=== PATIENT | female | born 1975 | race Caucasian/White ===

== ENCOUNTER → 2019-08-09 08:44 | Outpatient (CLI) | payer OTHER, SELFPAY ==
--- NOTE | 2019-08-09 | DI.US.S_ITS ---
PROCEDURE: US EXTREMITY NONVASC UPPER LT INDICATIONS: INFECTIVE MYOSITIS TECHNIQUE: Real-time scanning was performed of the left upper arm, with image documentation. COMPARISON: None. FINDINGS: No lymphadenopathy or fluid collections visualized. IMPRESSION: No sonographic abnormality. Dictated by: Lexa SIN Interpreted: Patrice Landrum MD on 08/09/2019 at 10:05 Approved by: Patrice Landrum M.D. on 08/09/2019 at 14:57
== END ==
PROVIDERS: PCP Nurse Practitioner Family; Visit Provider Nurse Practitioner Family
DX: M60.001 Infective myositis, unspecified left arm (principal)
CPT/HCPCS: 76882

== ENCOUNTER 2019-09-14 11:07 | Emergency (ER) | payer OTHER, SELFPAY ==
[2019-09-14 11:18] VITALS: BP 139/92; PULSE 86; RESP 18; TEMP 36.7; O2SAT 100
--- NOTE | 2019-09-14 11:21 | ED_ITS ---
HPI - Extremity Injury (Upper) General Chief Complaint: Extremity Problem,Nontraumatic Stated Complaint: arm hurts, possible cyst Time Seen by Provider: 09/14/19 11:20 Source: patient Mode of arrival: Ambulatory Limitations: no limitations History of Present Illness HPI narrative: 44-year-old female smoker presents with a chief complaint of ongoing severe left shoulder and arm pain since July. She denies any significant injury and has no fever or chills. She has been seen by her primary at least once or twice and has had an ultrasound which was unremarkable. She has had increasing pain that starts in her shoulder and radiates down her arm, worse with motion and improvement with rest. She states that she feels like her arm may be coming week but it's hard to tell if this week or just hurts. She has no discoloration, erythema, warmth or rash. Related Data Previous Rx's Medication Instructions Recorded albuterol sulfate 3 ml INH SEE INSTRUCTIONS #1 box 03/27/17 albuterol sulfate [Ventolin HFA] 1 puff INH SEE INSTRUCTIONS #8 gm 03/27/17 amoxicillin 875 mg PO BID #20 tab 03/27/17 fluconazole [Diflucan] 150 mg PO SEE INSTRUCTIONS #2 tab 03/27/17 fluticasone propionate [Flonase 0 INTRANASAL SEE INSTRUCTIONS #1 03/27/17 Allergy Relief] bot hydrocodone-chlorpheniramine 5 ml OR BID #115 ml 03/27/17 [Tussionex Pennkinetic ER] ofloxacin 1 drp OPHTH BID #1 bot 03/27/17 prednisone 20 mg PO SEE INSTRUCTIONS #10 tab 03/27/17 ketorolac 10 mg PO Q6H PRN #14 tab 09/14/19 Allergies Allergy/AdvReac Type Severity Reaction Status Date / Time clindamycin [CLINDAMYCIN] AdvReac Unknown GI UPSET Unverified 12/13/17 11:45 INSECT REACTION Allergy Intermediate RASH, Uncoded 12/13/17 11:45 EDEMA, WHEEZING Review of Systems Constitutional Constitutional: Denies chills, Denies fatigue, Denies fever(s), Denies frequent falls, Denies lethargy and Denies weakness Eyes Eyes: Denies change in vision, Denies eye discharge, Denies irritation and Denies loss of vision ENT Ears, Nose, Mouth, and Throat: Denies change in voice, Denies dizziness, Denies neck pain, Denies sore throat and Denies throat swelling Cardiovascular Cardiovascular: Denies chest pain, Denies irregular heart rhythm, Denies lightheadedness, Denies palpitations, Denies dyspnea, Denies dyspnea on exertion and Denies orthopnea Respiratory Respiratory: Denies cough, Denies dyspnea, Denies dyspnea on exertion and Denies wheezing Gastrointestinal Gastrointestinal: Denies abdominal pain, Denies change in bowel habits, Denies diarrhea, Denies nausea and Denies vomiting Genitourinary Genitourinary: Denies hematuria, Denies flank pain, Denies urinary incontinence and Denies urinary urgency Musculoskeletal Musculoskeletal: Denies back pain, Reports limited range of motion, Denies muscle weakness, Denies neck pain, Denies numbness and Denies tingling Integumentary/Breasts Skin/Breast: Denies pruritus, Denies erythema, Denies rash and Denies wounds Neurologic Neurologic: Denies behavioral changes, Denies confusion, Denies dizziness, Denies frequent falls, Denies loss of vision, Denies numbness, Denies tingling and Denies weakness Psychiatric Psychiatric: Denies anxiety, Denies behavioral changes, Denies confusion, Denies depression, Denies homicidal ideation and Denies suicidal ideation Endocrine Endocrine: Denies fatigue, Denies flushing and Denies palpitations Hematologic/Lymphatic Hematologic/Lymphatic: Denies easy bruising Allergic/Immunologic Allergic/Immunologic: Denies urticaria, Denies throat swelling and Denies wheezing Patient History Social History Smoking Status: Current every day smoker Smoking Status: Current every day smoker Exam Narrative Exam Narrative: GENERAL: [44] year old patient appears stated age. Well- nourished, well-developed patient, in mild distress. Crying, obviously uncomfortable HEAD: Atraumatic. Normocephalic. EYES: Pupils equal round and reactive. Extraocular motions intact. No scleral icterus. No injection or drainage. ENT: Nose without bleeding, purulent drainage. Throat without erythema, tonsillar hypertrophy or exudate. Airway patent. NECK: Trachea midline. Non tender CARDIOVASCULAR: Regular rate and rhythm without murmurs, gallops, or rubs. RESPIRATORY: Clear to auscultation. Breath sounds equal bilaterally. No wheezes, rales, or rhonchi. GASTROINTESTINAL: Abdomen soft, non-tender, nondistended. EXTREMITIES: Patient has decreased range of motion of left upper extremity at the shoulder due to pain. There is no erythema warmth or swelling noted. Cap refill is intact, sensation intact, pulses intact. Patient states the pain seems to start in her axilla and when I palpate there is no induration, swelling or abnormal finding but it does seem to elicit pain. BACK: Nontender without deformity or crepitance. No flank tenderness. NEURO: AOx3. SKIN: No rash or erythema of visible areas Initial Vital Signs Initial Vital Signs: Vital Signs Temperature 98.1 F 09/14/19 11:18 Pulse Rate 86 09/14/19 11:18 Respiratory Rate 18 09/14/19 11:18 Blood Pressure 139/92 H 09/14/19 11:18 Pulse Oximetry 100 09/14/19 11:18 Procedures Orthopedic Splinting/Casting Injury #1: Side: left Upper Extremity Injury Location: shoulder Upper Extremity Immobilizer: sling/shoulder immobilizer Post splinting neuro exam: intact Post splinting vascular exam: intact Placed by: Nursing Course Orders Ordered: ED Orders 09/14/19 12:30 Basic Metabolic Panel Stat C-Reactive Protein Quant Stat Complete Blood Count AUTO DIFF Stat Erythrocyte Sedimentation Rate Stat 09/14/19 13:12 CT angio UE LT Stat Vital Signs Vital signs: Vital Signs - 8 hr 09/14/19 11:18 09/14/19 14:21 Temperature 98.1 F Pulse Rate 86 76 Respiratory Rate 18 16 Blood Pressure 139/92 H 139/92 H Pulse Oximetry 100 97 MDM - Extremity Injury (Upper) Lab Data Result diagrams: 09/14/19 12:30 09/14/19 12:30 Labs: Lab Results 09/14/19 09/14/19 Range/Units 12:30 12:30 WBC 5.5 (4.5-11.0) X10^3/uL RBC 4.12 (4.0-5.2) X10^6/uL Hgb 13.1 (12.0-16.0) g/dL Hct 38.3 (36-46) % MCV 93.0 (80-100) fL MCH 31.9 (26-34) PG MCHC 34.3 (30-36) % RDW 14.2 (11.6-14.8) % Plt Count 279 (150-400) X10^3/uL Neut % (Auto) 35.3 L (50-75) % Lymph % (Auto) 51.4 H (25-40) % Day % (Auto) 8.2 (3-14) % Eos % (Auto) 4.3 H (2-4) % Baso % (Auto) 0.8 (0-2) % Neut # (Auto) 2000 (1135-6107) /uL Lymph # (Auto) 2800 (4077-4601) /uL Day # (Auto) 500 (0-900) /uL Eos # (Auto) 200 (0-450) /uL Baso # (Auto) 0 (0-100) /uL ESR 11 (0-20) MM/HR Sodium 143 (137-145) mmol/L Potassium 3.8 (3.4-5.1) mmol/L Chloride 105 (98-107) mmol/L Carbon Dioxide 33 H (22-32) mmol/L BUN 11 (7-17) mg/dL Creatinine 0.80 (0.52-1.04) mg/dL Estimated GFR > 60.0 (>60) mL/min BUN/Creatinine Ratio 13.8 (6-22) Glucose 100 (70-100) mg/dL Calcium 8.6 (8.4-10.2) mg/dL C-Reactive Protein 0.7 (<1.0) mg/dL Imaging Data CTA LUE: Radiologist's Impression: [place] [address] CT Scan Report Signed Patient: Christine Ghosh [employer]#: [id number] : 1975Acct:[id number] Age/Sex: 44 / FDate of Service: 09/14/19 Loc: ED Accession Number: [id number] Procedure: CT angio UE LT Ordering Provider: Danis Hakcett D.O. PROCEDURE: CT ANGIO UE LT INDICATIONS: severe pain shoulder to fingers, numb, weak TECHNIQUE: After the administration of intravenous contrast, 2.5 mm sections acquired from the aortic arch through the symptomatic arm, with optional delayed image acquisition from the elbows to the fingers. 3-dimensional maximum intensity projection (MIP) coronal and sagital reformats, and/or 3-dimensional volume rendering reformatting was then performed. For radiation dose reduction, the following was used: automated exposure control. COMPARISON: None. FINDINGS: Image quality: Diagnostic. Arteries: The heart is normal in size. There is no pericardial effusion. Anterior and superior vena cava are grossly unremarkable, but not well evaluated. The main pulmonary arterial trunk is within normal limits. The ascending and descending thoracic aorta is within normal limits without significant atherosclerotic change is evident. There is no aneurysm, dissection, or high-grade narrowing. Mild atherosclerosis of the abdominal aorta is present without evidence of aneurysm. There is mild atherosclerotic changes noted involving the bilateral internal iliac arteries and the right common iliac artery. Imaged portions of the left femoral arteries demonstrates mild atherosclerosis of the common femoral artery and the origin of the superficial femoral artery. No high-grade narrowing or occlusion is evident. The arch vessels of the thoracic aorta are widely patent without atherosclerotic changes. The right brachiocephalic artery, right common carotid artery, and right subclavian artery are patent. The left common carotid artery is patent. The left subclavian artery is patent without significant atherosclerosis. The left axillary, brachial, radial, and ulnar arteries are widely patent to at least the mid forearm. The more distal portions of these arteries are not adequately seen related to utilization of a large [id number]. No occlusions, aneurysms, or high-grad e narrowing is evident. Soft tissues: The soft tissues of the left upper extremity appear to be within normal limits. No soft tissue masses or drainable fluid collections are evident. No significant muscle atrophy is appreciated. Please note that the ligamentous, tendinous, and cartilaginous structures of the left upper extremity are not adequately evaluated on CT. There is no axillary lymphadenopathy. The included portions of the chest demonstrate the mediastinal structures to be within normal limits without a soft tissue mass or lymphadenopathy. Portions of the lungs are within normal limits. No focal consolidation, effusion, or pneumothorax is evident on the left. There is a vag ue area of groundglass attenuation identified within the right middle lobe that is not adequately evaluated (image 97, series 6). The included portions of the left abdomen and pelvis demonstrate the included portions of the liver to be somewhat hypodense when compared to the spleen. The spleen is unremarkable. The common bile duct is enlarged and measures up to approximately 1.5 cm in diameter (image 154, series 6). The included bowel loops are nondilated. A moderate to large amount of residual stool is identified throughout the colon The left adrenal gland and kidney are grossly unremarkable. No free fluid or loculated fluid collection is seen within the abdomen or pelvis. The uterus is not enlarged. The left ovary is not definitely seen. No lymphadenopathy within the chest, abdomen, or pelvis is appreciated. Bones: Image osseous structures of the left upper extremity are within normal limits. There is no acute fracture suspicious osseous lesion. No significant degenerat marlon changes are appreciated involving the glenohumeral joint or the elbow joint. There are degenerative changes noted involving the acromioclavicular joint. Calcifications overlying the humeral head on the left are incidentally noted along the course of the distal supraspinatus and infraspinatus tendons. Imaged portions of the spine demonstrate no acute fractures. Mild degenerative changes of the thoracolumbar spine are more prominent involving the lower lumbar levels and primarily evident involving the facet joints. The imaged osseous structures of the pelvis demonstrate age-appropriate degenerative changes of the left sacroiliac joint. IMPRESSION: 1. No significant atherosclerosis of the left upper extremity arterial system. There is no high-grade narrowing, aneurysm, or definitive evidence of occlusion. However, there is suboptimal filling of the arteries beyond the mid forearm, which is felt to be technical. However, clinical correlation is recommended. 2. The thoracic aorta and major branch vessels of the thoracic aorta are within normal limits. 3. Mild atherosclerosis of the abdominal aorta without evidence of aneurysm. There is also mild atherosclerosis of the iliac arteries and the imaged portions of the left common and superficial femoral arteries. No high-grade narrowing is evident. 4. Calcifications overlying the left shoulder are suggestive of calcific tendinitis. Please correlate clinically. 5. Enlarged common bile duct may be related to prior cholecystectomy. Clinical correlation is recommended. If the patient's liver function tests are per sistently elevated or increasing, please consider MRCP for further evaluation. 6. Probable hepatic steatosis. 7. Moderate to large amount of stool within the colon may represent constipation. Dictated by: Álvaro Quispe M.D. on 09/14/2019 at 12:46 Approved by: Álvaro Quispe M.D. on 09/14/2019 at 13:01 MDM Narrative Medical decision making narrative: Multiple etiologies a patient's pain considered including infection which is less likely given lack of exam findings or supporting lab evidence. Also considered clot or other vascular problem which was evaluated by angiogram of upper extremity. Patient encouraged to follow up and was given contact info for Orthopedics as well as return precautions Discharge Plan Departure Patient Disposition: Home Clinical Impression: Arm pain, left Discharge Date/Time: 09/14/19 14:22 Instructions: DI for Arm Pain Activity Restrictions/Additional Instructions: *You have been diagnosed with [chronic left arm pain] *What to do: *Take medications as directed *Follow up with your primary care provider in 2-3 days, call for an appointment. Let them know you were seen in the Emergency Department and that we ask that you be seen in follow up *Return to ER if you should have any new, worsening or concerning symptoms, such as [ ] Prescriptions: New ketorolac 10 mg tablet 10 mg PO Q6H PRN (Reason: pain) Qty: 14 RF: 0 No Action albuterol sulfate 2.5 MG/3 ML solution for nebulization 3 ml INH SEE INSTRUCTIONS Qty: 1 RF: 1 albuterol sulfate [Ventolin HFA] 90 MCG/PUFF HFA aerosol inhaler 1 puff INH SEE INSTRUCTIONS Qty: 8 RF: 5 fluticasone propionate [Flonase Allergy Relief] 9.9 ML spray,suspension 0 Intranasal SEE INSTRUCTIONS Qty: 1 RF: 2 ofloxacin 0.3 % drops 1 drp OPHTH BID Qty: 1 RF: 2 fluconazole [Diflucan] 150 MG tablet 150 mg PO SEE INSTRUCTIONS Qty: 2 RF: 0 prednisone 20 MG tablet 20 mg PO SEE INSTRUCTIONS Qty: 10 RF: 0 amoxicillin 875 MG tablet 875 mg PO BID Qty: 20 RF: 0 hydrocodone-chlorpheniramine [Tussionex Pennkinetic ER] 115 ML suspension,extended rel 12 hr 5 ml OR BID Qty: 115 RF: 0 Referrals: Mindy Yo ARNP [Primary Care Provider] - Yonny Morley MD [Physician] -
[2019-09-14 12:43] LABS: Add Manual Diff / Slide Review NO; Basophils Absolute Auto 0 /uL (0-100); Basophils Percent Auto 0.8 % (0-2); Eosinophils Absolute Auto 200 /uL (0-450); Eosinophils Percent Auto 4.3 % (2-4); Hematocrit 38.3 % (36-46); Hemoglobin 13.1 g/dL (12.0-16.0); Lymphocytes Absolute Auto 2800 /uL (1100-4500); Lymphocytes Percent Auto 51.4 % (25-40); Mean Corpuscular HGB Conc 34.3 % (30-36); Mean Corpuscular Hemoglobin 31.9 PG (26-34); Monocytes Absolute Auto 500 /uL (0-900); Monocytes Percent Auto 8.2 % (3-14); Neutrophils Absolute Auto 2000 /uL (1500-7000); Neutrophils Percent Auto 35.3 % (50-75); Platelet Count 279 X10^3/uL (150-400); Red Blood Cell Count 4.12 X10^6/uL (4.0-5.2); Red Cell Distribution Width 14.2 % (11.6-14.8); White Blood Cell Count 5.5 X10^3/uL (4.5-11.0)
[2019-09-14 12:53] LABS: BUN Creatinine Ratio 13.8 (6-22); Blood Urea Nitrogen 11 mg/dL (7-17); Calcium 8.6 mg/dL (8.4-10.2); Carbon Dioxide 33 mmol/L (22-32); Chloride 105 mmol/L (98-107); Estimated Glomerular Filt Rate > 60.0 mL/min (>60); Glucose 100 mg/dL (70-100); HEMOLYSIS < 15 (0-50); Potassium 3.8 mmol/L (3.4-5.1); Sodium 143 mmol/L (137-145)
[2019-09-14 13:06] LABS: C-Reactive Protein Quant 0.7 mg/dL (<1.0)
[2019-09-14 13:07] LABS: Erythrocyte Sedimentation Rate 11 MM/HR (0-20)
--- NOTE | 2019-09-14 13:12 | DI.CT.S_ITS ---
PROCEDURE: CT ANGIO UE LT INDICATIONS: severe pain shoulder to fingers, numb, weak TECHNIQUE: After the administration of intravenous contrast, 2.5 mm sections acquired from the aortic arch through the symptomatic arm, with optional delayed image acquisition from the elbows to the fingers. 3-dimensional maximum intensity projection (MIP) coronal and sagital reformats, and/or 3-dimensional volume rendering reformatting was then performed. For radiation dose reduction, the following was used: automated exposure control. COMPARISON: None. FINDINGS: Image quality: Diagnostic. Arteries: The heart is normal in size. There is no pericardial effusion. Anterior and superior vena cava are grossly unremarkable, but not well evaluated. The main pulmonary arterial trunk is within normal limits. The ascending and descending thoracic aorta is within normal limits without significant atherosclerotic change is evident. There is no aneurysm, dissection, or high-grade narrowing. Mild atherosclerosis of the abdominal aorta is present without evidence of aneurysm. There is mild atherosclerotic changes noted involving the bilateral internal iliac arteries and the right common iliac artery. Imaged portions of the left femoral arteries demonstrates mild atherosclerosis of the common femoral artery and the origin of the superficial femoral artery. No high-grade narrowing or occlusion is evident. The arch vessels of the thoracic aorta are widely patent without atherosclerotic changes. The right brachiocephalic artery, right common carotid artery, and right subclavian artery are patent. The left common carotid artery is patent. The left subclavian artery is patent without significant atherosclerosis. The left axillary, brachial, radial, and ulnar arteries are widely patent to at least the mid forearm. The more distal portions of these arteries are not adequately seen related to utilization of a large [id number]. No occlusions, aneurysms, or high-grade narrowing is evident. Soft tissues: The soft tissues of the left upper extremity appear to be within normal limits. No soft tissue masses or drainable fluid collections are evident. No significant muscle atrophy is appreciated. Please note that the ligamentous, tendinous, and cartilaginous structures of the left upper extremity are not adequately evaluated on CT. There is no axillary lymphadenopathy. The included portions of the chest demonstrate the mediastinal structures to be within normal limits without a soft tissue mass or lymphadenopathy. Portions of the lungs are within normal limits. No focal consolidation, effusion, or pneumothorax is evident on the left. There is a vague area of groundglass attenuation identified within the right middle lobe that is not adequately evaluated (image 97, series 6). The included portions of the left abdomen and pelvis demonstrate the included portions of the liver to be somewhat hypodense when compared to the spleen. The spleen is unremarkable. The common bile duct is enlarged and measures up to approximately 1.5 cm in diameter (image 154, series 6). The included bowel loops are nondilated. A moderate to large amount of residual stool is identified throughout the colon The left adrenal gland and kidney are grossly unremarkable. No free fluid or loculated fluid collection is seen within the abdomen or pelvis. The uterus is not enlarged. The left ovary is not definitely seen. No lymphadenopathy within the chest, abdomen, or pelvis is appreciated. Bones: Image osseous structures of the left upper extremity are within normal limits. There is no acute fracture suspicious osseous lesion. No significant degenerative changes are appreciated involving the glenohumeral joint or the elbow joint. There are degenerative changes noted involving the acromioclavicular joint. Calcifications overlying the humeral head on the left are incidentally noted along the course of the distal supraspinatus and infraspinatus tendons. Imaged portions of the spine demonstrate no acute fractures. Mild degenerative changes of the thoracolumbar spine are more prominent involving the lower lumbar levels and primarily evident involving the facet joints. The imaged osseous structures of the pelvis demonstrate age-appropriate degenerative changes of the left sacroiliac joint. IMPRESSION: 1. No significant atherosclerosis of the left upper extremity arterial system. There is no high-grade narrowing, aneurysm, or definitive evidence of occlusion. However, there is suboptimal filling of the arteries beyond the mid forearm, which is felt to be technical. However, clinical correlation is recommended. 2. The thoracic aorta and major branch vessels of the thoracic aorta are within normal limits. 3. Mild atherosclerosis of the abdominal aorta without evidence of aneurysm. There is also mild atherosclerosis of the iliac arteries and the imaged portions of the left common and superficial femoral arteries. No high-grade narrowing is evident. 4. Calcifications overlying the left shoulder are suggestive of calcific tendinitis. Please correlate clinically. 5. Enlarged common bile duct may be related to prior cholecystectomy. Clinical correlation is recommended. If the patient's liver function tests are persistently elevated or increasing, please consider MRCP for further evaluation. 6. Probable hepatic steatosis. 7. Moderate to large amount of stool within the colon may represent constipation. Dictated by: Álvaro Quispe M.D. on 09/14/2019 at 12:46 Approved by: Álvaro Quispe M.D. on 09/14/2019 at 13:01
[2019-09-14 14:21] VITALS: BP 139/92; PULSE 76; RESP 16; O2SAT 97
== END 2019-09-14 14:22 | disposition home or self-care (01) ==
PROVIDERS: Emergency Provider Emergency Medicine; PCP Nurse Practitioner Family
DX: M79.602 Pain in left arm (principal); R20.0 Anesthesia of skin
CPT/HCPCS: 73206; 80048; 85025; 85651; 86140; 99284; Q9967

== ENCOUNTER 2020-06-26 05:52 | Day surgery (SDC) | payer OTHER, SELFPAY ==
[2020-06-25 07:55] VITALS: BMI 28.3
[2020-06-26 07:16] VITALS: BP 137/77; PULSE 77; RESP 12; TEMP 36.3; O2SAT 94; BMI 28.3
--- NOTE | 2020-06-26 07:27 | PM.PREOP ---
Pre-operative Note COVID-19 COVID-19 status: Negative Result date/Date tested (Pos, Neg/Pending): 06/24/20 Interval Note History & Physical reviewed/Exam performed by Physician: Yes Changes to H&P: No
[2020-06-26] MEDS: ACETAMINOPHEN 325 MG TABLET 975 MG PO (07:30)
[2020-06-26] MEDS: LACTATED RINGERS 1,000 ML 42 ML IV (07:30)
[2020-06-26] MEDS: SCOPOLAMINE 1 PATCH TOP (07:31)
--- NOTE | 2020-06-26 07:38 | P.OP_ITS ---
Operative Date/Time/Diagnoses Date of procedure: 06/26/20 Time of procedure: 07:50 Pre-op diagnosis: Painful orthopedic hardware Closed left trimalleolar ankle fracture, sequelae Post-op diagnosis: other (Painful orthopedic hardware, peroneal tendon tenosynovitis, low-lying peroneus brevis muscle. Closed left trimalleolar fracture sequela codey) Procedure & Clinicians Procedure: Removal of hardware left ankle medial Removal hardware left ankle lateral [id number] Exploration and Tenolysis peroneal tendons, left CPT code 55621 Surgeon directed fluoroscopy [id number] Same procedure as scheduled: Yes Indications: Patient is a 44-year-old female with remote history of a left trimalleolar ankle fracture. She has persistent pain both medially and laterally at the hardware as well as posteriorly along the peroneal tendons. Fractures are well healed. She has failed conservative treatment. She has been indicated for hardware removal of her ankle medial and lateral and exploration peroneal tendons. The risks and benefits of the procedure have been discussed with the patient even opportunity to ask questions. The risks of surgery include but are not limited to infection, re fracture, persistence of pain, damage to nerves and blood vessels, posttraumatic arthritis, incomplete hardware removal, DVT, PE, cardiopulmonary complications and . The patient expressed a thorough understanding of the risks and benefits of surgery and has elected to proceed. Consent was signed in the office. Surgeon: Jewels Thompson Click Yes if Unassisted: Yes Anesthesia Type: General Operative Notes Findings: Retained medial screws and lateral plate and screws. Two medial screws removed. Through separate lateral incision the plate and 8 fibular screws were removed. Peroneal tendons were explored. Tenosynovitis peroneal tendons was found as well as a Low-lying peroneus brevis muscle belly. The peroneal tendons were debrided. Low-lying muscle belly was debrided. Closure Type: primary Specimen(s): none sent Estimated Blood Loss (mL): 5 Blood products transfused: none Tourniquet time (min): 34 Procedure in detail: Patient was seen in the preoperative area the site of surgery was marked and consent confirmed. Questions were answered. Patient was taken to the operative room by the anesthesia team positioned supine on the operative table. General anesthetic was administered. All bony prominences well padded. An SCD was placed on the contralateral lower extremity. A well- padded thigh tourniquet was placed. An ipsilateral thigh bump was placed. The left lower extremities prepped and draped in standard sterile fashion. A formal time-out procedure was performed confirming the patient's side and site of surgery administration of appropriate preoperative antibiotics. Additionally the patient had a stress dose of steroids. Attention to the left lower extremity. The this was exsanguinated using the Esmarch and the tourniquet raised on the thigh to 250 mm of mercury and stayed there for 34 minutes. Medial ankle hardware removal: Attention was turned to the medial ankle. The previous incision over the medial malleolus was reopened. Dissection was taken through subcutaneous tissues. The screw heads were palpable. They were cleaned off using the Totz elevator and the Bovie cautery. Screwdriver was placed removed the 2 fully-threaded medial screws. The wound was then irrigated and c losed with 4-0 Monocryl and 3-0 nylon suture. Lateral ankle hardware removal: Attention was then turned to the lateral ankle. Lateral longitudinal scar was reopened over the fibula. Distally the hardware was palpable through the skin. A dissection was taken down to the level of the hardware. There was thickened scar tissue over this. A combination of sharp dissection with the blade and Bovie cautery was used to expose the screws and plate. Eight screws from the fibula and the 8 hole plate were removed in total. And the rongeur was used to smooth out the scar tissue after removal. Peroneal tendon exploration Tenolysis: Attention was then turned posteriorly to the fibula the peroneal tendon sheath was opened longitudinally. The peroneus longus and brevis were expected. There were no tears of the tendons however there was significant tenosynovitis as well as a robust low-lying peroneus brevis muscle belly tracked into the groove. The tenolysis was performed and the peroneus brevis muscle belly was debrided decompressing the groove. At this point the wound was irrigated. The peroneal tendon sheath was closed with 2-0 Vicryl suture. Subcutaneous tissues were closed with 2-0 Vicryl and 4-0 Monocryl. Skin was closed with 3-0 nylon suture. Final fluoroscopic images with the mini C-arm were taken in multiple planes confirming hardware removal. Tourniquet was released. A dressing with Xeroform gauze and Webril and Orlin wraps were placed. Patient was then placed into her walking boot. She was woken from anesthesia and taken to recovery room in good condition. There no immediate complications. Surgeon directed fluoroscopy: AP and the lateral mortise images of the left ankle were taken confirming hardware removal from the medial and lateral ankle. No new fractures evident. Stable alignment. Complications: none Post-operative Condition: stable Disposition: PACU Plan for aftercare: Weightbear as tolerated in walking boot. Keep dressing clean dry and intact. May come out of boot at night or during the day when not walking and do gentle ankle dorsiflexion plantar flexion range of motion. Keep dressing in place until 1st follow-up. Use boot for weight-bearing x1 month
[2020-06-26] MEDS: CEFAZOLIN 2 GM/100 ML FROZ.PIGGY IV (07:45)
--- NOTE | 2020-06-26 08:08 | SUR.OPER ---
Supine on padded OR bed, head on pillow, arms secured on padded arm boards at <90 degrees abduction, legs uncrossed, safety belt at thigh, tape over blanket over lower right leg, bump under left thigh and lower left leg, left leg draped free.
[2020-06-26] MEDS: BUPIVACAINE 0.25% W/ EPI 30 ML VIAL INJ (08:17)
[2020-06-26 08:59] VITALS: BP 137/61; PULSE 84; RESP 12; TEMP 36.4; O2SAT 95
[2020-06-26] MEDS: fentaNYL 100 MCG/2 ML INJ IV ×3 (09:01→09:16)
[2020-06-26] MEDS: LORazepam 2 MG/ML INJ 0.5 MG IV (09:05)
[2020-06-26] MEDS: LORazepam 2 MG/ML INJ 1 MG IV (09:19)
[2020-06-26] MEDS: OXYCODONE IR 5 MG TABLET PO (09:22)
--- NOTE | 2020-06-26 09:34 | SUR.PHASEI ---
Pt arrived to PACU crying and complaining of pain, trying to sit up, talking about 'it hurts, f...'. Dr. Thompson remained present talking with patient, eventually loosened and then removed the boot. patient began to get calmer with very brief quiet periods after 2nd dose of pain med and lorazepam. Still complaining and crying; denies nausea. applesauce and crackers in prep for PO Rx. 0930 Pt sitting up queitly, not crying, eyes closed, declines to lean back. continues to rate pain at 5/10. Dr Thompson here, changed her home med for better pain control. resp even and regular.
--- NOTE | 2020-06-26 09:57 | SUR.PHASEI ---
Dozing intermittently, arouses easily. resp unlabored, VSS.
[2020-06-26 10:40] VITALS: BP 103/73; PULSE 78; RESP 14; TEMP 36; O2SAT 98
[2020-06-26 11:50] VITALS: BP 104/71; PULSE 80; RESP 14; TEMP 35.6; O2SAT 100
--- NOTE | 2020-06-26 11:56 | SUR.PHASEII ---
Assumed care of pt at this time. Dr. Thompson placed L lower extremity in surgical boot.
[2020-06-26 12:05] VITALS: BP 110/74; PULSE 71; RESP 16; TEMP 36.8; O2SAT 98
--- NOTE | 2020-06-26 12:30 | SUR.PHASEII ---
D/C instructions discussed with both pt and her . Both voiced an understanding. Pt ready to go, assisted pt to dress, pt left unit in stable condition.
--- NOTE | 2020-06-26 12:31 | SUR.PHASEII ---
Late entry: Pt had been on continual pulse ox, pt's sats maintained above 95%
== END 2020-06-26 12:25 | disposition home or self-care (01) ==
PROVIDERS: PCP Nurse Practitioner Family; Referring Provider Orthopaedic Surgery Foot and Ankle Surgery; Visit Provider Orthopaedic Surgery Foot and Ankle Surgery
PROC: (CPT 27704; principal; 2020-06-26 07:45)
DX: T84.84XA Pain due to internal orthopedic prosthetic devices, implants and grafts, initial encounter (principal); S82.852S Displaced trimalleolar fracture of left lower leg, sequela; M65.872 Other synovitis and tenosynovitis, left ankle and foot; J45.909 Unspecified asthma, uncomplicated; F17.210 Nicotine dependence, cigarettes, uncomplicated
CPT/HCPCS: 27704; J0690; J1885; J2060; J2250; J2405; J2704; J3010

== ENCOUNTER 2020-12-29 14:00 | Emergency (ER) | payer OTHER, SELFPAY ==
[2020-12-29 14:15] VITALS: BP 154/75; PULSE 97; RESP 20; TEMP 36.9; O2SAT 100
--- NOTE | 2020-12-29 15:44 | ED.SKABFB ---
HPI - Skin/Abscess/Foreign Bdy General Chief complaint: Skin/Abscess/Foreign Body Stated complaint: LEFT ANKLE INFECTION Time Seen by Provider: 12/29/20 15:42 Source: patient Mode of arrival: Ambulatory Limitations: no limitations History of Present Illness HPI narrative: This is a 45-year-old female comes emergency department complaint of left ankle infection. Patient states she had a removal of hardware in June of 2020. Patient states she developed a ?cyst? in the ankle and was told that it should be drained by Dr. Thompson here orthopedic surgeon. Patient states that she had 2 locations on the, 1 of them the larger has become soft when it was harder before. She has not developed any warmth, redness or other skin changes. She states she has had increasing pain in that area. She states it has started to radiate up the leg. Patient denies any fevers. She denies any chest pain or shortness of breath she has been feeling quite anxious. She was nauseated and had some vomiting earlier today but denies any abdominal pain or emesis currently. She denies any other GI or urinary symptoms at this time including no diarrhea, constipation, no frequency, dysuria sense of urgency. Patient states that she is on Suboxone for pain control as well as duloxetine. She states she has had hysterectomy denies other surgeries. She has allergies to penicillins and clindamycin. Patient does state that she was reluctant to return to her orthopedic surgeon for drainage as she was offered to have a drained in the office versus the OR based on patient preference. Her visit with Dr. Jara was 4 weeks ago. Related Data Home Medications Medication Instructions Recorded Confirmed buprenorphine-naloxone [Suboxone] 1 film BUCCAL TID 06/25/20 06/26/20 bupropion HCl 75 mg PO BID 06/25/20 06/26/20 duloxetine 120 mg PO DAILY 06/25/20 06/26/20 Previous Rx's Medication Instructions Recorded albuterol sulfate 3 ml INH SEE INSTRUCTIONS #1 box 03/27/17 albuterol sulfate [Ventolin HFA] 1 puff INH SEE INSTRUCTIONS #8 gm 03/27/17 gabapentin 300 mg PO TID #15 cap 06/26/20 hydrocodone-acetaminophen [Bruin] 1 tab PO Q4H PRN #20 tab 06/26/20 oxycodone 5 mg PO Q4H PRN #30 tab 06/26/20 Allergies Allergy/AdvReac Type Severity Reaction Status Date / Time amoxicillin Allergy Reaction Verified 06/26/20 07:08 not listed Penicillins Allergy Reaction Verified 06/26/20 07:08 not listed clindamycin [CLINDAMYCIN] AdvReac Unknown GI UPSET Verified 06/26/20 07:08 INSECT REACTION Allergy Intermediate RASH, Uncoded 12/13/17 11:45 EDEMA, WHEEZING Review of Systems Review of Systems ROS Unobtainable: All systems reviewed & are unremarkable except as noted in HPI and below Patient History Medical History Chronic pain Psoriasis Surgical History History of ankle surgery (2013) Social History household members: spouse and children Smoking Status: Current every day smoker alcohol intake: current Smoking Status: Current every day smoker alcohol intake frequency: holidays/special occasions only Substance Use Type: former substance user Exam Narrative Exam Narrative: GENERAL: Alert and oriented x three, well-nourished female in mild distress. Patient appears older than stated age. HEENT: Head normocephalic, atraumatic, EOMI, pupils reactive, face symmetric, moist mucous membranes NECK: Supple, full range of motion CARDIOVASCULAR: Regular rate and rhythm without murmurs, rubs or gallops. RESPIRATORY: Breath sounds equal bilaterally, no wheezes rales or rhonchi. ABDOMEN: Soft, nontender. Normoactive bowel sounds all 4 quadrants. No guarding or rebound, rigidity, no mass : No CVA tenderness EXTREMITIES: Normal range of motion, no clubbing. Patient has a vertical incision over the lateral ankle which appears healed. There is no warmth, erythema or drainage noted. There are 2 areas 1 is approximately 1/2 cm middle of the incision that is slightly firm. There is a 2nd that is approximately 2 cm at the more distal end of the incision which is soft her troponin and fluctuant but without any warmth, well the erythema or other skin changes noted. There is no scaling of the skin or obvious sign of the area appearing to be ready to drain. Neurovascularly intact NEUROLOGICAL: Cranial nerves II through XII grossly intact. Moving all extremities SKIN: Warm, dry, no petechiae, no rashes or lesions noted. Initial Vital Signs Initial Vital Signs: Vital Signs Temperature 98.4 F 12/29/20 14:15 Pulse Rate 97 H 12/29/20 14:15 Respiratory Rate 20 12/29/20 14:15 Blood Pressure 154/75 H 12/29/20 14:15 Pulse Oximetry 100 12/29/20 14:15 Course Orders Ordered: ED Orders 12/29/20 15:54 XR ankle LT min 3V Stat Reevaluation(s) Time: 17:28 Consultations Consultation #1: Dr. Headley with general surgery recommend patient follow-up with your orthopedic surgeon for drainage. We did discuss that it does not appear infected at this time. Time: 17:33 Vital Signs Vital signs: Vital Signs - 8 hr 12/29/20 14:15 Temperature 98.4 F Pulse Rate 97 H Respiratory Rate 20 Blood Pressure 154/75 H Pulse Oximetry 100 MDM - Skin/Abscess/Foreign Bdy Imaging Data Extremity x-ray #1: Radiologist's Impression: [address] [id number] ReportSigned Patient: Christine Ghosh [facility]#: [id number]: 1975Acct:[id number]/Sex: 45 / FDate of Service: 12/29/20Loc: EDAccession Number: [id number] Procedure: XR ankle LT min 3V Ordering Provider: Aleah Simpson D.O. PROCEDURE: XR ANKLE LT MIN 3V INDICATIONS: left ankle, ? seroma lateral over sx TECHNIQUE: 3 views of the ankle were acquired. COMPARISON: [facility], CR, XR ANKLE 3 VIEWS WEIGHT BEARING LEFT, 12/03/2020, 13:20. [facility], , ANKLE 3 VIEWS LEFT, 04/06/2014, 8:45. FINDINGS: Bones: No fractures or dislocations. Ankle mortise is normally aligned. No suspicious bony lesions. Screw tracks are noted from prior surgical hardware removal of the distal fibula. Soft tissues: There is soft tissue prominence at the ankle slightly more laterally, relatively unchanged compared to prior exam. Achilles tendon appears normal. IMPRESSION: Postsurgical changes as above. Relatively stable appearance of soft tissue prominence at the ankle. If concern for soft tissue pathology exists, focal ultrasound may be helpful for additional evaluation. Dictated by: Pam Ramírez M.D. on 12/29/2020 at 16:10 Approved by: Pam Ramírez M.D. on 12/29/2020 at 16:12 [facility] Narrative Medical decision making narrative: This is a 45-year-old female with left ankle seroma over her surgical incision site. The area does not appear infected in any way. It has been present for several months and was seen 4 weeks ago by her orthopedic surgeon who recommended drainage in the office or OR depending on patient's preference. Patient is reluctant to return to her orthopedic surgeon and did not follow-up. She comes in today we did discuss orthopedic surgeries recommendations that she return to the office for drainage and not to be drained in the emergency department. Patient defers any pain medications we did discuss she can do ibuprofen and/or Tylenol along with her Suboxone. We also discussed return precautions and signs and symptoms to watch that would indicate that patient has infection in that area. Discharge Plan Departure Patient Disposition: Home Clinical Impression: Postoperative seroma Activity Restrictions/Additional Instructions: Follow up with Dr. Thompson for recheck. Orthopedic surgery recommends that you follow-up with them for drainage. You may take Tylenol up to a 1000 mg every 8 hours as needed for pain You may also add ibuprofen up to 800 mg every 8 hours as needed for pain. You may take both of these medications with your Suboxone. Please return for fevers greater than 100.4F, new warmth, redness, drainage, new or changing pain, swelling of your extremities or other new or concerning symptoms. Prescriptions: No Action albuterol sulfate 2.5 MG/3 ML solution for nebulization 3 ml INH SEE INSTRUCTIONS Qty: 1 RF: 1 albuterol sulfate [Ventolin HFA] 90 MCG/PUFF HFA aerosol inhaler 1 puff INH SEE INSTRUCTIONS Qty: 8 RF: 5 bupropion HCl 75 mg Tablet 75 mg PO BID RF: 0 buprenorphine-naloxone [Suboxone] 12-3 mg Film 1 film BUCCAL TID RF: 0 duloxetine tablet 120 mg PO DAILY RF: 0 hydrocodone-acetaminophen [Bruin] 5-325 mg tablet 1 tab PO Q4H PRN (Reason: pain) Qty: 20 RF: 0 gabapentin 300 mg capsule 300 mg PO TID Qty: 15 RF: 0 oxycodone 5 mg tablet 5 mg PO Q4H PRN (Reason: pain) Qty: 30 RF: 0 Referrals: Jewels Thompson MD [Physician] - Mindy Yo ARNP [Primary Care Provider] -
--- NOTE | 2020-12-29 15:54 | DI.RAD.S_ITS ---
PROCEDURE: XR ANKLE LT MIN 3V INDICATIONS: left ankle, ? seroma lateral over sx TECHNIQUE: 3 views of the ankle were acquired. COMPARISON: [facility], CR, XR ANKLE 3 VIEWS WEIGHT BEARING LEFT, 12/03/2020, 13:20. [facility], CR, ANKLE 3 VIEWS LEFT, 04/06/2014, 8:45. FINDINGS: Bones: No fractures or dislocations. Ankle mortise is normally aligned. No suspicious bony lesions. Screw tracks are noted from prior surgical hardware removal of the distal fibula. Soft tissues: There is soft tissue prominence at the ankle slightly more laterally, relatively unchanged compared to prior exam. Achilles tendon appears normal. IMPRESSION: Postsurgical changes as above. Relatively stable appearance of soft tissue prominence at the ankle. If concern for soft tissue pathology exists, focal ultrasound may be helpful for additional evaluation. Dictated by: Pam Ramírez M.D. on 12/29/2020 at 16:10 Approved by: Pam Ramírez M.D. on 12/29/2020 at 16:12
== END 2020-12-29 17:43 | disposition home or self-care (01) ==
PROVIDERS: Emergency Provider Emergency Medicine; PCP Nurse Practitioner Family
DX: L76.34 Postprocedural seroma of skin and subcutaneous tissue following other procedure (principal)
CPT/HCPCS: 73610; 99283

== ENCOUNTER → 2021-07-02 09:20 | Outpatient (CLI) | payer OTHER, SELFPAY ==
--- NOTE | 2021-07-02 | DI.CT.S_ITS ---
PROCEDURE: CT LE RT WO CON INDICATIONS: Nondisplaced fracture of third metatarsal bone, ri TECHNIQUE: Noncontrast 1-1.5 mm axial sections acquired from above the tibiotalar joint to the bottom of the calcaneus, with coronal and sagittal reformats. COMPARISON: [facility] [place], CR, XR FOOT 3 VIEWS WEIGHT BEARING RIGHT, 06/16/2021, 9:29. FINDINGS: Image quality: Excellent. Bones: Fractures of the 2nd and 3rd metatarsal bases, with mild displacement. There is minimal partial bridging ossification. No change in alignment since 06/16/21. Scattered degenerative subchondral sclerosis and spurring. Tarsometatarsal alignment appears grossly anatomic. Plantar calcaneal spurring. Soft tissues: Diffuse subcutaneous edema IMPRESSION: Unchanged alignment of 2nd and 3rd metatarsal base fractures. Minimal partial bridging ossification however prominent fracture lucency persists. Dictated by: Robe Jacobo M.D. on 07/02/2021 at 11:08 Approved by: Robe Jacobo M.D. on 07/02/2021 at 11:12
== END ==
PROVIDERS: PCP Nurse Practitioner Family; Referring Provider Orthopaedic Surgery Foot and Ankle Surgery; Visit Provider Orthopaedic Surgery Foot and Ankle Surgery
DX: S92.321A Displaced fracture of second metatarsal bone, right foot, initial encounter for closed fracture (principal); S92.331A Displaced fracture of third metatarsal bone, right foot, initial encounter for closed fracture; X58.XXXA Exposure to other specified factors, initial encounter
CPT/HCPCS: 73700

== ENCOUNTER 2021-07-23 06:13 | Day surgery (SDC) | payer OTHER, SELFPAY ==
[2021-07-19 07:59] VITALS: BMI 28.3
[2021-07-23] VITALS (7 sets, daily range): BP systolic 101–127; BP diastolic 59–99; PULSE 75–87; RESP 12–16; TEMP 36.3–36.7; O2SAT 99–100; BMI 30.4
--- NOTE | 2021-07-23 | DI.RAD.S_ITS ---
PROCEDURE: XR FOOT RT 2V INDICATIONS: METATARSAL FIXATION TECHNIQUE: Multiple intraoperative fluoroscopic spot views of the foot were acquired. COMPARISON: [facility], , FOOT 3V LEFT, 08/19/2012, 15:15. FINDINGS: Bones: 2nd and 3rd metatarsal fusion hardware is in place. Bony alignment appears normal. No fractures or dislocations. No suspicious bony lesions. Soft tissues: No abnormalities. IMPRESSION: 1. Intraoperative fluoroscopic spot images of 2nd and 3rd metatarsal fusion. Dictated by: Tracy Pollack M.D. on 07/23/2021 at 10:13 Approved by: Tracy Pollack M.D. on 07/23/2021 at 10:14
[2021-07-23] MEDS: LACTATED RINGERS 1,000 ML 42 ML IV (07:02)
--- NOTE | 2021-07-23 07:17 | SUR.PREOP ---
Pt had negative Covid test on 07/21/21. Results shown to me from cell phone. Pt was unable to print them out.
--- NOTE | 2021-07-23 07:21 | PM.HP.1 ---
History of Present Illness History of Present Illness Date Patient Seen: 07/23/21 Time Patient Seen: 07:22 Chief complaint: SDC Narrative: Patient is a 45-year-old female had an injury at work several months ago when she dropped a heavy item on her right. Foot. This was a case of water. She had nondisplaced fractures of her 2nd and 3rd metatarsals. This is been complicated by nonunion. She has been indicated for ORIF of her metatarsal nonunions. She has stopped smoking. She has been taking vitamin-D and calcium. The risks and benefits of the procedure have been discussed with the patient even opportunity to ask questions. The risks of surgery include but are not limited to infection, malunion, nonunion, persistence of pain, damage to nerves and blood vessels, posttraumatic arthritis, DVT, PE, cardiopulmonary complications and . The patient expressed a thorough understanding of the risks and benefits of surgery and has elected to proceed. Consent was signed . Additionally we discussed using calcaneal autograft to assist in union. Patient has a history of chronic pain is typically on Suboxone by her PCP. Has been off of this just before surgery so that she can take pain medication afterwards. This the protocol has been done for previous surgeries. She has an allergy to penicillins involving anaphylaxis. She has tolerated clindamycin well in the past and will have that as a preoperative antibiotic. Patient History Medical History Ankle fracture, right (03/01/21) Chronic pain Psoriasis Surgical History History of ankle surgery (2013) History of ankle surgery (06/26/20) History of hysterectomy Family & Social History Social History: household members spouse,children Tobacco & Substance use: Tobacco type cigarettes Smoking Status Former smoker alcohol intake current alcohol intake frequency holiday/special occasion Substance Use Type former substance user Meds Home Medications and Allergies Home Medications Medication Instructions Recorded Confirmed Type albuterol sulfate 3 ml INH SEE INSTRUCTIONS #1 box 03/27/17 07/23/21 Rx albuterol sulfate 90 mcg/actuation 1 puff INH SEE INSTRUCTIONS #8 gm 03/27/17 07/23/21 Rx aerosol inhaler (Ventolin HFA) buprenorphine 12 mg-naloxone 3 mg 1 film BUCCAL TID 06/25/20 07/23/21 History sublingual film (Suboxone) gabapentin 300 mg capsule 300 mg PO TID #15 cap 06/26/20 07/19/21 Rx dextroamphetamine-amphetamine 30 mg PO DAILY 07/23/21 07/23/21 History oxycodone 5 mg tablet 5 mg PO Q6H PRN 07/23/21 07/23/21 History Allergies Allergy/AdvReac Type Severity Reaction Status Date / Time bee venom protein (honey bee) Allergy Severe Anaphylaxis Verified 07/23/21 06:41 amoxicillin Allergy Hives Verified 07/23/21 06:41 Penicillins Allergy Hives Verified 07/23/21 06:41 clindamycin [CLINDAMYCIN] AdvReac Unknown GI UPSET Verified 07/23/21 06:41 INSECT REACTION Allergy Intermediate RASH, Uncoded 07/23/21 06:41 EDEMA, WHEEZING Review of Systems Review of Systems Narrative: History of chronic pain. Typically on Suboxone. Off for surgery. History of smoking but has completed cessation recently in preparations for surgery. Denies fevers chills nausea vomiting shortness of breath chest pain ROS: Yes All systems reviewed with the patient and are negative except as otherwise documented Exam Vital Signs (past 8 hours): - 07/23/21 07:03 Temperature 97.3 F L Pulse Rate 87 Respiratory Rate 16 Blood Pressure 120/71 Pulse Oximetry 99 Oxygen Delivery Method Room Air Narrative Exam Narrative: General exam alert oriented female no acute distress HEENT exam normocephalic atraumatic Respiratory exam lungs clear to auscultation bilaterally CV exam regular rate and rhythm Extremity exam moving bilateral upper extremities without limitation. Left lower extremity full range of motion without limitation. Right lower extremity no swelling no erythema. Tenderness over the dorsal 2nd and 3rd metatarsal bases. No gross deformity. Sensation grossly intact to light touch. Palpable dorsalis pedis pulse. Calf is soft. Demonstrates active dorsiflexion plantar flexion wiggle toes. 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 She has persistent pain and difficulty with ambulation. She has been indicated for ORIF with [employer] bone graft. The risks and benefits of the procedure have been discussed with the patient even opportunity to ask questions. The risks of surgery include but are not limited to infection, malunion, nonunion, persistence of pain, damage to nerves and blood vessels, posttraumatic arthritis, DVT, PE, cardiopulmonary complications and . The patient expressed a thorough understanding of the risks and benefits of surgery and has elected to proceed. Consent was signed. Plan for calcaneus autograft COVID-19 COVID-19 status: Negative Time Spent With Patient Time with patient: less than 30 minutes Critical Care time: I spent a total of [] minutes of critical care time on this patient's care today; this time is exclusive of procedural time. Quality VTE Deep Vein Thrombosis/Pulmonary Embolism Present on Admission: No
--- NOTE | 2021-07-23 07:36 | SUR.PREOP ---
0725 - Monitoring initiated and maintained throughout procedure. 0730 - O2 2LNC on. 0737 - Time out performed. Medications given by Dr Chaves. 0745 - Injection. 0747 - Block complete. Pt remained stable through out procedure. No adverse reactions noted. See monitor strips.
[2021-07-23] MEDS: CLINDAMYCIN 900 MG/50 ML PIGGYBACK 50 MG IV (08:00)
--- NOTE | 2021-07-23 08:22 | SUR.OPER ---
Supine on padded OR bed, head on pillow, arms secured on padded arm boards at <90 degrees abduction, legs uncrossed, safety belt at waist, tape over blanket over lower left leg, right leg draped free gel bump under right buttock.
[2021-07-23] MEDS: BUPIVACAINE 0.25% (PF) 30 ML, EPINEPHrine 0.15 MG INJ (08:35)
--- NOTE | 2021-07-23 08:39 | PM.PROC.1 ---
Procedures Date/Time Date of procedure: 07/23/21 Time of procedure: 07:35 General Procedure description: Ultrasound guided popliteal sciatic nerve block for post op pain control after right foot surgery by Dr. Thompson. Risk and benefits of procedure discussed with patient. ASA monitoring applied to patient. Oxygen given via nasal cannula. 2 mg Versed and 100 mcg fentanyl given for procedural sedation. Skin site was prepped with chlorhexidine and allowed to fully dry. Sterile gloves, mask, hat and probe cover were used to maintain sterility. 2% lidocaine and 30ga needle was used to make a small skin wheal at needle insertion site. Under ultrasound guidance, a 21ga 100mm Pajunk needle was directed near the division of the sciatic nerve into tibial and peroneal nerve in the popliteal fossa (lateral approach). Patient reported no parasthesias. After negative aspiration, 20 mL 0.5% ropivicaine and 10mg dexamethasone were injected around sciatic nerve. Patient tolerated procedure well.
--- NOTE | 2021-07-23 10:35 | P.OP_ITS ---
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 The injury happened when she dropped a case of water on her foot. She sustained nondisplaced 2nd 3rd metatarsal fractures. These have gone to nonunion. And she has continued pain. She has been indicated for open reduction and internal fixation bone grafting. She has stopped smoking. She has been taking vitamin-D supplementation. The risks and benefits of the procedure have been discussed with the patient even opportunity to ask questions. The risks of surgery include but are not limited to infection, malunion, nonunion, persistence of pain, damage to nerves and blood vessels, posttraumatic arthritis, DVT, PE, cardiopulmonary complications and . The patient expressed a thorough understanding of the risks and benefits of surgery and has elected to proceed. Consent was signed today. She has an allergy to penicillin will get clindamycin as a preoperative antibiotic. Surgeon: Jewels Thompson Click Yes if Unassisted: Yes Anesthesia Type: General, Peripheral nerve block and Local Operative Notes Findings: Nonunion 2nd and 3rd metatarsal base fractures Closure Type: primary Specimen(s): none sent Prosthetic devices, grafts, tissues, transplants, or devices: Arthrex 2.4 metatarsal T-plate for the 2nd metatarsal Arthrex 2.0 metatarsal T-plate for the 3rd metatarsal Estimated Blood Loss (mL): 15 Blood products transfused: none Tourniquet time (min): 73 Procedure in detail: Patient was seen in the preoperative area the site of surgery marked informed consent confirmed. She was brought back to the operating room by the anesthesia team. Preoperatively she did have a regional block placed by the anesthesia team for postoperative pain control. She was then positioned supine on the operative table. General anesthesia was administered. All bony prominences well padded. Well-padded thigh tourniquet was placed. An SCD was placed on the contralateral lower extremity. The right lower extremities prepped and draped in standard sterile fashion. Formal time-out procedure was performed confirming the patient's side site of surgery administration of appropriate preoperative antibiotic which was 900 of clindamycin. All were in agreement. Implants were in the room and accounted for. Attention turned to the right lower extremity Esmarch was used for exsang uination tourniquet raised on the thigh to 250 mmHg. A small triangle was used to help with positioning. The C-arm was brought in and an incision in the interval between the 2nd and 3rd metatarsal bases was drawn out on the foot. Sharp dissection was taken down to skin with a scalpel subcutaneous tissues were dissected with care to preserve the neurovascular structures and tendons. Dissection was taken down to the level of the 2nd and 3rd metatarsal. Subperiosteal dissection was completed. Fibrous nonunion was removed using a rongeur and pituitary. Nonunion sites were exposed and opened using the osteotomes and K-wire distractor. Nonunion sites were cleaned using the pituitary then the bone ends were drilled with the 2-0 drill bit to facilitate bleeding bone. A separate incision was made for the calcaneal bone graft along the lateral calcaneal tuberosity. Small stab skin incision in the jam she trocar was inserted down to the bone mallet into the bone and several passes were made obtaining dowel bone graft as well as bone marrow aspirate. This was then placed into the nonunion sites at the base of the 2nd and 3rd metatarsals. The 2nd metatarsal was plated with a 2 for plate compression technique and a 2.0 plate was used for the 3rd metatarsal again under compression technique. Final fluoroscopic x-rays were performed confirming appropriate hardware placement, preservation of the joints, and restored alignment. At this point tourniquet was released. Hemostasis was achieved. Wounds was closed with Vicryl Monocryl and nylon suture. Ten more cc of 0.25% Marcaine with epinephrine was used for local anesthetic. Dressing was placed with Xeroform gauze and Webril ABD pads and a well-padded posterior splint. Drapes removed. Patient was woken from anesthesia and taken to the recovery room in good condition. There no immediate complications from this procedure. Complications: none Post-operative Condition: stable Disposition: PACU Plan for aftercare: Nonweightbearing or toe-touch for balance on the right lower extremity. Aspirin for DVT prophylaxis. Follow-up in 2 weeks for suture removal and transition to a boot. She will have Dilaudid for postoperative pain management as well as Zofran. Explained the importance of continued smoking cessation for bone healing. Will take calcium and vitamin-D.
== END 2021-07-23 10:46 | disposition home or self-care (01) ==
PROVIDERS: PCP Nurse Practitioner Family; Referring Provider Orthopaedic Surgery Foot and Ankle Surgery; Visit Provider Orthopaedic Surgery Foot and Ankle Surgery
PROC: (CPT 28485; principal; 2021-07-23 07:45)
DX: S92.324K Nondisplaced fracture of second metatarsal bone, right foot, subsequent encounter for fracture with nonunion (principal); S92.334K Nondisplaced fracture of third metatarsal bone, right foot, subsequent encounter for fracture with nonunion; S97.81XA Crushing injury of right foot, initial encounter; G89.29 Other chronic pain; F11.20 Opioid dependence, uncomplicated; Z87.891 Personal history of nicotine dependence
CPT/HCPCS: 20900; 28322 ×2; 73620; 76000; J0171; J1100; J2250; J2405; J2704; J3010

== ENCOUNTER 2021-10-08 14:25 | Emergency (ER) | payer OTHER, SELFPAY ==
[2021-10-08 14:28] VITALS: BP 133/89; PULSE 95; RESP 15; TEMP 36.1; O2SAT 100; BMI 32.4
--- NOTE | 2021-10-08 16:48 | DI.RAD.S_ITS ---
PROCEDURE: XR FOOT RT 2V INDICATIONS: swelling TECHNIQUE: 3 views of the foot were acquired. COMPARISON: [facility], CR, XR FOOT RT 2V, 07/23/2021, 10:17. FINDINGS: Bones: 2nd and 3rd tarsometatarsal arthrodesis with dorsal plate and screw instrumentation. No evidence of hardware failure loosening. Longitudinal arch is maintained. Soft tissues: No tibiotalar joint effusion. Achilles tendon appears normal. IMPRESSION: No acute findings. No fracture or malalignment. Instrumented 2nd and 3rd tarsometatarsal arthrodesis Approved by: Mustapha Babcock M.D. on 10/08/2021 at 16:55
--- NOTE | 2021-10-08 16:49 | ED_ITS ---
HPI - Extremity Injury (Lower) <Leobardo Simmons PA-C - Last Filed: 10/08/21 18:15> General Chief Complaint: Extremity Injury, Lower Stated Complaint: Right foot swollen Time Seen by Provider: 10/08/21 16:45 Source: patient Mode of arrival: Ambulatory History of Present Illness HPI Narrative: Patient is a 46-year-old female who presents to the ED with swelling to the right foot after having an an ORIF for a foot fracture. She contacted her eating disorder specialist to advised her to go to the emergency room to be evaluated. She is concerned for infection secondary to the swelling. She has pain with ambulation which is not new considering her recent foot fracture. She denies any fever cough shortness of breath abdominal pain nausea vomiting diarrhea. Related Data Home Medications Medication Instructions Recorded Confirmed buprenorphine 12 mg-naloxone 3 mg 1 film BUCCAL TID 06/25/20 07/23/21 sublingual film (Suboxone) dextroamphetamine-amphetamine 30 mg PO DAILY 07/23/21 07/23/21 Previous Rx's Medication Instructions Recorded albuterol sulfate 3 ml INH SEE INSTRUCTIONS #1 box 03/27/17 albuterol sulfate 90 mcg/actuation 1 puff INH SEE INSTRUCTIONS #8 gm 03/27/17 aerosol inhaler (Ventolin HFA) gabapentin 300 mg capsule 300 mg PO TID #15 cap 06/26/20 aspirin 325 mg tablet,delayed 325 mg PO DAILY #42 tab 07/23/21 release docusate sodium 100 mg capsule 100 mg PO BID #20 cap 07/23/21 (Colace) hydromorphone 2 mg tablet 2 mg PO Q4H PRN #42 tab 07/23/21 ondansetron HCl 4 mg tablet 4 mg PO Q8H PRN #7 tab 07/23/21 (Zofran) Allergies Allergy/AdvReac Type Severity Reaction Status Date / Time bee venom protein (honey bee) Allergy Severe Anaphylaxis Verified 10/08/21 14:29 amoxicillin Allergy Hives Verified 10/08/21 14:29 Penicillins Allergy Hives Verified 10/08/21 14:29 clindamycin [CLINDAMYCIN] AdvReac Unknown GI UPSET Verified 10/08/21 14:29 INSECT REACTION Allergy Intermediate RASH, Uncoded 07/23/21 06:41 EDEMA, WHEEZING Review of Systems <Leobardo Simmons PA-C - Last Filed: 10/08/21 18:15> Review of Systems ROS Unobtainable: All systems reviewed & are unremarkable except as noted in HPI and below Constitutional Constitutional: Denies chills, Denies fatigue, Denies fever(s), Denies frequent falls, Denies lethargy and Denies weakness Eyes Eyes: Denies change in vision, Denies eye discharge, Denies irritation and Denies loss of vision ENT Ears, Nose, Mouth, and Throat: Denies change in voice, Denies dizziness, Denies neck pain, Denies sore throat and Denies throat swelling Cardiovascular Cardiovascular: Denies chest pain, Denies irregular heart rhythm, Denies lightheadedness, Denies palpitations, Denies dyspnea, Denies dyspnea on exertion and Denies orthopnea Respiratory Respiratory: Denies cough, Denies dyspnea, Denies dyspnea on exertion and Denies wheezing Gastrointestinal Gastrointestinal: Denies abdominal pain, Denies change in bowel habits, Denies diarrhea, Denies nausea and Denies vomiting Genitourinary Genitourinary: Denies hematuria, Denies flank pain, Denies urinary incontinence and Denies urinary urgency Musculoskeletal Musculoskeletal: Denies back pain, Reports arthralgias, Reports joint swelling, Denies muscle weakness, Denies neck pain, Denies numbness and Denies tingling Integumentary/Breasts Skin/Breast: Denies pruritus, Denies erythema, Denies rash and Denies wounds Neurologic Neurologic: Denies behavioral changes, Denies confusion, Denies dizziness, Denies frequent falls, Denies loss of vision, Denies numbness, Denies tingling and Denies weakness Psychiatric Psychiatric: Denies anxiety, Denies behavioral changes, Denies confusion, Denies depression, Denies homicidal ideation and Denies suicidal ideation Endocrine Endocrine: Denies fatigue, Denies flushing and Denies palpitations Hematologic/Lymphatic Hematologic/Lymphatic: Denies easy bruising Allergic/Immunologic Allergic/Immunologic: Denies urticaria, Denies throat swelling and Denies wheezing Patient History <Leobardo Simmons PA-C - Last Filed: 10/08/21 18:15> Medical History Ankle fracture, right (03/01/21) Chronic pain Psoriasis Surgical History History of ankle surgery (2013) History of ankle surgery (06/26/20) History of hysterectomy Social History household members: spouse and children Smoking Status: Former smoker alcohol intake: current Smoking Status: Former smoker alcohol intake frequency: holidays/special occasions only Substance Use Type: former substance user Exam <Leobardo Simmons PA-C - Last Filed: 10/08/21 18:15> Initial Vital Signs Initial Vital Signs: Vital Signs Temperature 97.0 F L 10/08/21 14:28 Pulse Rate 95 H 10/08/21 14:28 Respiratory Rate 15 10/08/21 14:28 Blood Pressure 133/89 10/08/21 14:28 Pulse Oximetry 100 10/08/21 14:28 Extrem Right lower extremity: foot Details: normal capillary refill, tenderness and edema Course <Leobardo Simmons PA-C - Last Filed: 10/08/21 18:15> Orders Ordered: ED Orders 10/08/21 16:48 XR foot RT 2V Stat Vital Signs Vital signs: Vital Signs - 8 hr 10/08/21 14:28 Temperature 97.0 F L Pulse Rate 95 H Respiratory Rate 15 Blood Pressure 133/89 Pulse Oximetry 100 MDM - Extremity Injury (Lower) <Leobardo Simmons PA-C - Last Filed: 10/08/21 18:15> Differential Diagnosis Differential diagnosis: Likely other Imaging Data Extremity x-ray #1: Radiologist's Impression: PROCEDURE:? XR FOOT RT 2V ? INDICATIONS:? swelling ? TECHNIQUE:? 3 views of the foot were acquired.? ? COMPARISON:? [facility], , XR FOOT RT 2V, 07/23/2021, 10:17. ? FINDINGS:? ? Bones:? 2nd and 3rd tarsometatarsal arthrodesis with dorsal plate and screw instrumentation.? No evidence of hardware failure loosening.? Longitudinal arch is maintained. ? Soft tissues:? No tibiotalar joint effusion.? Achilles tendon appears normal.? ? ? IMPRESSION:? ? No acute findings.? No fracture or malalignment. Instrumented 2nd and 3rd tarsometatarsal arthrodesis ? ? ? Approved by: Mustapha Babcock M.D. on 10/08/2021 at 16:55? MDM Narrative Medical decision making narrative: Patient was evaluated for right foot pain and swelling today. She recently had an ORIF has noticed that she had increased swelling today. She is concerned for infection x-ray today does not demonstrate any signs of infection at this point I believe it is feasible that she can be discharged home follow-up with PCP consider having hardware removal of continued swelling or pain persists. Discharge Plan Departure Patient Disposition: Home Clinical Impression: Foot pain Qualifiers: Laterality: right Qualified Code(s): M79.671 - Pain in right foot Instructions: DI for Foot Pain Activity Restrictions/Additional Instructions: You were seen today for swelling in the right foot x-ray today does not show any evidence of any infection if the swelling continues I would recommend follow-up with your eating disorder specialist consultation for hardware removal or further treatment options. Prescriptions: No Action albuterol sulfate 2.5 MG/3 ML solution for nebulization 3 ml INH SEE INSTRUCTIONS Qty: 1 1RF albuterol sulfate [Ventolin HFA] 90 MCG/PUFF HFA aerosol inhaler 1 puff INH SEE INSTRUCTIONS Qty: 8 5RF buprenorphine-naloxone [Suboxone] 12-3 mg Film 1 film BUCCAL TID 0RF gabapentin 300 mg capsule 300 mg PO TID Qty: 15 0RF dextroamphetamine-amphetamine 30 mg PO DAILY 0RF hydromorphone 2 mg tablet 2 mg PO Q4H PRN (Reason: pain) Qty: 42 0RF Rx Instructions: Postop exempt ondansetron HCl [Zofran] 4 mg tablet 4 mg PO Q8H PRN (Reason: nausea and vomiting) Qty: 7 1RF docusate sodium [Colace] 100 mg capsule 100 mg PO BID Qty: 20 0RF aspirin 325 mg tablet,delayed release (DR/EC) 325 mg PO DAILY Qty: 42 0RF Referrals: Jewels Thompson MD [Primary Care Provider] -
== END 2021-10-08 18:21 | disposition home or self-care (01) ==
PROVIDERS: Emergency Provider Physician Assistant; PCP Orthopaedic Surgery Foot and Ankle Surgery
DX: M79.671 Pain in right foot (principal); Z98.890 Other specified postprocedural states; Y99.0 Civilian activity done for income or pay
CPT/HCPCS: 73620; 99283

== ENCOUNTER → 2021-11-04 12:42 | Outpatient (CLI) | payer OTHER, SELFPAY ==
--- NOTE | 2021-11-04 | DI.CT.S_ITS ---
PROCEDURE: CT LE RT WO CON INDICATIONS: FRACTURE OF SECOND METATARSAL BONE/RT FOOT TECHNIQUE: Noncontrast 1-1.5 mm axial sections acquired from above the tibiotalar joint to the bottom of the calcaneus, with coronal and sagittal reformats. COMPARISON: [facility], CR, XR FOOT RT 2V, 07/23/2021, 10:17. [facility], CT, CT LE RT WO CON, 07/02/2021, 9:27. FINDINGS: Image quality: Excellent. Bones: No acute, displaced fracture. Fixation hardware seen in the proximal aspect of the 2nd and 3rd metatarsals without evidence of hardware compromise. The fracture line in the proximal 2nd metatarsal remains visible with sclerosis about the fracture margins. Evidence of hardware removal is seen in the calcaneus. Background arthritic changes are noted. Soft tissues: Diffuse edema. IMPRESSION: Persistent fracture deformity of the proximal aspect 2nd metatarsal as detailed above. Dictated by: Demarco Isaacs M.D. on 11/04/2021 at 13:45 Approved by: Demarco Isaacs M.D. on 11/04/2021 at 14:51
== END ==
PROVIDERS: PCP Nurse Practitioner Family; Referring Provider Orthopaedic Surgery Foot and Ankle Surgery; Visit Provider Orthopaedic Surgery Foot and Ankle Surgery
DX: S92.324K Nondisplaced fracture of second metatarsal bone, right foot, subsequent encounter for fracture with nonunion (principal); X58.XXXD Exposure to other specified factors, subsequent encounter
CPT/HCPCS: 73700

== ENCOUNTER → 2022-05-07 08:11 | Outpatient (CLI) | payer OTHER, SELFPAY ==
--- NOTE | 2022-05-07 08:13 | DI.CT.S_ITS ---
PROCEDURE: CT LE RT WO CON INDICATIONS: fracture of second metatarsal bone, right foot TECHNIQUE: Noncontrast 1-1.5 mm axial sections acquired from above the tibiotalar joint to the bottom of the calcaneus, with coronal and sagittal reformats. COMPARISON: [facility], CT, CT LE RT WO CON, 11/04/2021, 13:07. FINDINGS: Image quality: Excellent. Bones: Plate and screw fixation of 2nd and 3rd proximal metatarsal fractures. Fracture lucencies have decreased in conspicuity from comparison. Alignment is unchanged. No osseous erosions identified. Unchanged mild osteoarthritic changes throughout the ankle. Soft tissues: Mild soft tissue edema of lower extremity. IMPRESSION: Continued healing of 2nd and 3rd proximal metatarsal fractures. Dictated by: Lemuel Sarmiento M.D. on 05/07/2022 at 8:22 Approved by: Lemuel Sarmiento M.D. on 05/07/2022 at 8:27
== END ==
PROVIDERS: PCP Nurse Practitioner Family; Referring Provider Orthopaedic Surgery Foot and Ankle Surgery; Visit Provider Orthopaedic Surgery Foot and Ankle Surgery
DX: S92.324K Nondisplaced fracture of second metatarsal bone, right foot, subsequent encounter for fracture with nonunion (principal); S92.331A Displaced fracture of third metatarsal bone, right foot, initial encounter for closed fracture
CPT/HCPCS: 73700

== ENCOUNTER 2024-02-06 18:20 | Emergency (ER) | payer OTHER, MEDICAID, SELFPAY ==
[2024-02-06 18:29] VITALS: BP 152/70; PULSE 88; RESP 16; TEMP 36.2; O2SAT 100; BMI 32.2
--- NOTE | 2024-02-06 23:14 | ED.HEATRA ---
HPI - Head Injury General Chief complaint: Head Injury Stated complaint: fell/head inj Time Seen by Provider: 02/06/24 22:30 Source: patient Mode of arrival: Ambulatory History of Present Illness HPI Narrative: Patient is a 40-year-old female who states yesterday she sustained a fall where she fell down a couple stairs after tripping. She did hit her head on the ground. No loss of consciousness. She has a history of psoriasis. She stated that she injured 1 of the psoriatic lesions on her forehead and now she feels like it is infected because it is draining purulent material. She did hit her face. Does have some swelling and bruising around the right side of her face. No vision changes. No change in dental symptoms. No neck pain. She reports no extremity injuries. She was having somewhat of a headache. [place] sent in the emergency department because of concern for a concussion. Related Data Home Medications Medication Instructions Recorded Confirmed buprenorphine 12 mg-naloxone 3 mg 1 film buccal TID 06/25/20 07/23/21 sublingual film (Suboxone) dextroamphetamine-amphetamine 30 mg PO DAILY 07/23/21 07/23/21 Previous Rx's Medication Instructions Recorded albuterol sulfate 2.5 mg/3 mL 3 ml INH SEE INSTRUCTIONS ##1 03/27/17 (0.083 %) solution for nebulization albuterol sulfate 90 mcg/actuation 1 puff INH SEE INSTRUCTIONS ##8 03/27/17 aerosol inhaler (Ventolin HFA) gabapentin 300 mg capsule 300 mg PO TID #15 caps 06/26/20 aspirin 325 mg tablet,delayed 325 mg PO DAILY #42 tabs 07/23/21 release docusate sodium 100 mg capsule 100 mg PO BID #20 caps 07/23/21 (Colace) hydromorphone 2 mg tablet 2 mg PO Q4H PRN pain #42 tabs 07/23/21 ondansetron HCl 4 mg tablet 4 mg PO Q8H PRN nausea and 07/23/21 (Zofran) vomiting #7 tabs cephalexin 500 mg capsule 500 mg PO QID 7 days #28 caps 02/06/24 Allergies Allergy/AdvReac Type Severity Reaction Status Date / Time bee venom protein (honey bee) Allergy Severe Anaphylaxis Verified 02/06/24 18:32 amoxicillin Allergy Hives Verified 02/06/24 18:32 Penicillins Allergy Hives Verified 02/06/24 18:32 clindamycin [CLINDAMYCIN] AdvReac Unknown GI UPSET Verified 02/06/24 18:32 INSECT REACTION Allergy Intermediate RASH, Uncoded 02/06/24 18:32 EDEMA, WHEEZING Review of Systems Review of Systems Narrative: See HPI Patient History Medical History Ankle fracture, right (03/01/21) Chronic pain Psoriasis Surgical History History of ankle surgery (2013) History of ankle surgery (06/26/20) History of hysterectomy Social History household members: spouse and children Smoking Status: Former smoker alcohol intake: current Smoking Status: Former smoker alcohol intake frequency: holidays/special occasions only Substance Use Type: former substance user Exam Initial Vital Signs Initial Vital Signs: Vital Signs Temperature 97.2 F L 02/06/24 18:29 Pulse Rate 88 02/06/24 18:29 Respiratory Rate 16 02/06/24 18:29 Blood Pressure 152/70 H 02/06/24 18:29 Pulse Oximetry 100 02/06/24 18:29 Oxygen Delivery Method Room Air 02/06/24 18:29 Const General: cooperative, comfortable and No ill appearing HENMT Head: contusion and scalp lesion Face and sinus: no crepitus, no ecchymosis, erythema on the right periorbital and no fluctuance Mouth: oral mucosae normal Resp Effort & Inspection: normal respiratory effort Cardio Rate: regular rate Back/Spine/Pelvis Cervical Spine: No cervical spinal tenderness Skin Other: She has a cm lesion just inside the hairline on her forehead that does appear to have some purulent material from it. There was no surrounding erythema. She also has some redness surrounding her right eye. Neuro General: patient alert, patient awake and moves all extremities Extrem General: No edema Course Orders Ordered: Discontinued Medications Cephalexin HCl (Cephalexin 250 Mg Capsule) 500 mg PO NOW ONE Stop: 02/06/24 23:17 Last Admin: 02/06/24 23:21 Dose: 500 mg Documented By: SB Vital Signs Vital signs: Vital Signs - 8 hr 02/06/24 23:26 Pulse Rate 80 Respiratory Rate 18 Blood Pressure 120/59 L Pulse Oximetry 100 Oxygen Delivery Method Room Air MDM - Head Injury MDM Narrative Medical decision making narrative: This was a mechanical fall. Cervical spine was cleared by nexus criteria. There was no indication for head CT. We did discuss a concussion and she has minimal if any criteria that would be consistent with a concussion. She does appear to have an abrasion on her forehead or a psoriatic lesion that does appear to be infected today. She was tolerating oral intake. Will treat her with antibiotics. She was given a dose here in the ER and a prescription was sent to the pharmacy of her choice. She also has some redness around her right eye. Potentially a contusion. This is also possibly infection. Low suspicion for orbital cellulitis. She was no vision changes. There was no indication for admission to the hospital today. Discharge patient home with return precautions. She expressed understanding and agreement. Discharge Plan Departure Patient Disposition: Home Clinical Impression: Cellulitis, Closed head injury Instructions: Cellulitis Activity Restrictions/Additional Instructions: You have no restrictions on your activities. Take the antibiotics as directed. Contact your primary doctor for a follow-up. Return to the emergency department for new or worsening symptoms. Prescriptions: New cephalexin 500 mg capsule 500 mg PO QID 7 Days Qty: 28 0RF No Action albuterol sulfate 2.5 MG/3 ML solution for nebulization 3 ml INH SEE INSTRUCTIONS Qty: 1 1RF albuterol sulfate [Ventolin HFA] 90 MCG/PUFF HFA aerosol inhaler 1 puff INH SEE INSTRUCTIONS Qty: 8 5RF buprenorphine-naloxone [Suboxone] 12-3 mg Film 1 film BUCCAL TID gabapentin 300 mg capsule 300 mg PO TID Qty: 15 0RF dextroamphetamine-amphetamine 30 mg PO DAILY hydromorphone 2 mg tablet 2 mg PO Q4H PRN (Reason: pain) Qty: 42 0RF Rx Instructions: Postop exempt ondansetron HCl [Zofran] 4 mg tablet 4 mg PO Q8H PRN (Reason: nausea and vomiting) Qty: 7 1RF docusate sodium [Colace] 100 mg capsule 100 mg PO BID Qty: 20 0RF aspirin 325 mg tablet,delayed release (DR/EC) 325 mg PO DAILY Qty: 42 0RF Referrals: Mindy Yo ARNP [Primary Care Provider] - Stand Alone Forms: Patient Portal/API
[2024-02-06] MEDS: cephALEXin 250 MG CAPSULE 500 MG PO (23:21)
[2024-02-06 23:26] VITALS: BP 120/59; PULSE 80; RESP 18; O2SAT 100
== END 2024-02-06 23:29 | disposition home or self-care (01) ==
PROVIDERS: Emergency Provider Emergency Medicine; PCP Nurse Practitioner Family
DX: S09.90XA Unspecified injury of head, initial encounter (principal); L03.211 Cellulitis of face; W01.0XXA Fall on same level from slipping, tripping and stumbling without subsequent striking against object, initial encounter
CPT/HCPCS: 99283

== ENCOUNTER 2024-11-06 10:07 | Emergency (ER) | payer OTHER, SELFPAY ==
[2024-11-06 10:16] VITALS: BP 148/68; PULSE 98; RESP 16; TEMP 36.7; O2SAT 99; BMI 31.2
--- NOTE | 2024-11-06 10:52 | ED_ITS ---
HPI - Dental/Oral General Chief complaint: Dental/Oral Stated complaint: face swelling tooth infection, dizzy Time Seen by Provider: 11/06/24 10:49 History of Present Illness HPI Narrative: 49-year-old female with past medical history of alcohol abuse, substance abuse, comes into the ED from home for evaluation of right-sided dental/facial swelling. States this has been ongoing persistent for the past week, states that she did call her doctor yesterday and got started on clindamycin. She states that she is only taken 1 dose of this, she states that when she does that she does start feeling nauseous which in turn causes her to feel slightly dizzy. Patient states that she is not having any other symptoms such as headache visual disturbances chest pain shortness of breath fever chills abdominal pain or any other GI/ symptoms time. At time of initial evaluation patient is well-appearing nontoxic speaking in full sentences protecting airway no voice changes no stridor no trismus Related Data Home Medications Medication Instructions Recorded Confirmed buprenorphine 12 mg-naloxone 3 mg 1 film buccal TID 06/25/20 11/06/24 sublingual film (Suboxone) dextroamphetamine-amphetamine 30 mg PO DAILY 07/23/21 11/06/24 Previous Rx's Medication Instructions Recorded albuterol sulfate 2.5 mg/3 mL 3 ml INH SEE INSTRUCTIONS ##1 03/27/17 (0.083 %) solution for nebulization albuterol sulfate 90 mcg/actuation 1 puff INH SEE INSTRUCTIONS ##8 03/27/17 aerosol inhaler (Ventolin HFA) gabapentin 300 mg capsule 300 mg PO TID #15 caps 06/26/20 aspirin 325 mg tablet,delayed 325 mg PO DAILY #42 tabs 07/23/21 release docusate sodium 100 mg capsule 100 mg PO BID #20 caps 07/23/21 (Colace) hydromorphone 2 mg tablet 2 mg PO Q4H PRN pain #42 tabs 07/23/21 ondansetron HCl 4 mg tablet 4 mg PO Q8H PRN nausea and 07/23/21 (Zofran) vomiting #7 tabs ondansetron 4 mg disintegrating 4 mg PO Q8H PRN nausea and 11/06/24 tablet vomiting 7 days #21 tabs Allergies Allergy/AdvReac Type Severity Reaction Status Date / Time bee venom protein (honey bee) Allergy Severe Anaphylaxis Verified 11/06/24 10:20 amoxicillin Allergy Hives Verified 11/06/24 10:20 Penicillins Allergy Hives Verified 11/06/24 10:20 clindamycin [CLINDAMYCIN] AdvReac Unknown GI UPSET Verified 11/06/24 10:20 INSECT REACTION Allergy Intermediate RASH, Uncoded 11/06/24 10:20 EDEMA, WHEEZING Review of Systems Review of Systems Narrative: General: Denies fever, chills, weight loss HEENT: Positive dental/facial swelling. Denies headache, eye drainage, eye irritation, head trauma, sore throat, voice change Cardiovascular: Denies any chest pain, palpitations, tachycardia Respiratory: Denies any shortness of breath, cough, wheeze, stridor GI/: Denies any abdominal pain, nausea, vomiting, diarrhea, bright red blood per rectum, melanotic stools, urinary frequency, urinary retention, dysuria, hematuria MSK: Denies any joint pain, muscle pains, swelling Skin: Denies any rashes, lesions, discoloration Neuro: Denies any headache, lightheadedness, dizziness, fainting, weakness Psych: Denies SI/HI Patient History Medical History Ankle fracture, right (03/01/21) Chronic pain Psoriasis Surgical History History of ankle surgery (2013) History of ankle surgery (06/26/20) History of hysterectomy Social History household members: spouse and children Smoking Status: Former smoker alcohol intake: current Smoking Status: Former smoker alcohol intake frequency: holidays/special occasions only Exam Narrative Exam Narrative: General: Cooperative, comfortable, well-developed, not in acute distress HEENT: Patient with right-sided facial edema however no overlying erythema ec chymosis, no voice changes no stridor no trismus patient tolerating secretions speaking full sentences poor dental caries noted on exam Normocephalic, atraumatic, PERRLA, normal sclera, eyelids normal, Neck: Active full range of motion, atraumatic Chest: Normal to inspection, negative crepitus, no overlying erythema ecchymosis Respiratory: Normal respiratory effort, not in acute respiratory distress, clear to auscultation bilaterally negative cough, wheeze, tachypnea, rhonchi, rales Cardiology: Regular rate rhythm negative gallop, murmur, rubs GI/: Normal to inspection, soft, nonrigid, no tenderness to palpation, exam deferred MSK: Full range of active range of motion of all 4 extremities, atraumatic Skin: No rashes lesions noted Neuro: Alert awake oriented x3, moves all 4 extremities spontaneously, cranial nerves intact, able to answer all questions appropriately follows commands appropriately Psych: Cooperative, negative suicidal or homicidal ideations Initial Vital Signs Initial Vital Signs: Vital Signs Temperature 98.1 F 11/06/24 10:16 Pulse Rate 98 H 11/06/24 10:16 Respiratory Rate 16 11/06/24 10:16 Blood Pressure 148/68 H 11/06/24 10:16 Pulse Oximetry 99 11/06/24 10:16 Oxygen Delivery Method Room Air 11/06/24 10:16 Course Vital Signs Vital signs: Vital Signs - 8 hr 11/06/24 10:16 Temperature 98.1 F Pulse Rate 98 H Respiratory Rate 16 Blood Pressure 148/68 H Pulse Oximetry 99 Oxygen Delivery Method Room Air MDM - Dental/Oral Differential Diagnosis Differential diagnosis: Likely dental caries, toothache, dental abscess and fracture of tooth MDM Narrative Medical decision making narrative: Patient is a 49-year-old female with a history of substance abuse alcohol abuse comes into the ED for dental pain/facial swelling, states symptoms have been ongoing persistent for the past week did call her doctor yesterday got started on clindamycin states that she was told that this could take ?awhile for the infection to get better but presents today because after her 1st dose she started feeling nauseous, as well as dizziness. She states that she is here because she has not sure if there is a different medication that she can try. However patient is well-appearing nontoxic no overlying facial cellulitis. Informed patient that these are common side effects of antibiotics instructed her to take probiotics with it we will also send her home with antinausea medications, on exam she is speaking full sentences protecting airway no voice changes no stridor no trismus, poor dental caries noted on exam but no apical or periapical abscess noted. Patient was given strict return precautions she verbalized understanding of this and agrees to being discharged home with outpatient follow up. She states that she does have an appointment with a dentist but states that they will not do anything until she completes her course of antibiotics but does have a follow up appointment scheduled for this. Discharge Plan Departure Patient Disposition: Home Clinical Impression: Pain, dental Instructions: DI for Dental Pain Activity Restrictions/Additional Instructions: Please follow up with your primary care doctor and dentist for your scheduled appointment Please read the discharge instructions sheet carefully and bring all papers to all doctor follow-up visits, as it may contain information that your doctor may want to see. Disease processes change and evolve, if your symptoms worsen or if you develop any new symptoms that are concerning to you please return for evaluation. Your evaluation today does not show any evidence of any life- threatening/serious illnesses requiring admission to the hospital or surgery. Please follow-up with your doctor for re-evaluation in approximately 1 day. Seek immediate medical attention for any worrisome symptoms. *If you do not have a primary care provider please contact the [facility] Resource line at [phone]. They will ask some questions about your medical history and help get you set up with a doctor in the community. Prescriptions: New ondansetron 4 mg tablet,disintegrating 4 mg PO Q8H PRN (Reason: nausea and vomiting) 7 Days Qty: 21 0RF No Action albuterol sulfate 2.5 MG/3 ML solution for nebulization 3 ml INH SEE INSTRUCTIONS Qty: 1 1RF albuterol sulfate [Ventolin HFA] 90 MCG/PUFF HFA aerosol inhaler 1 puff INH SEE INSTRUCTIONS Qty: 8 5RF buprenorphine-naloxone [Suboxone] 12-3 mg Film 1 film BUCCAL TID gabapentin 300 mg capsule 300 mg PO TID Qty: 15 0RF dextroamphetamine-amphetamine 30 mg PO DAILY hydromorphone 2 mg tablet 2 mg PO Q4H PRN (Reason: pain) Qty: 42 0RF Rx Instructions: Postop exempt ondansetron HCl [Zofran] 4 mg tablet 4 mg PO Q8H PRN (Reason: nausea and vomiting) Qty: 7 1RF docusate sodium [Colace] 100 mg capsule 100 mg PO BID Qty: 20 0RF aspirin 325 mg tablet,delayed release (DR/EC) 325 mg PO DAILY Qty: 42 0RF Referrals: Mindy Yo ARNP [Primary Care Provider] - Stand Alone Forms: Patient Portal/API/Survey
== END 2024-11-06 11:03 | disposition home or self-care (01) ==
PROVIDERS: Emergency Provider Student in an Organized Health Care Education/Training Program; PCP Nurse Practitioner Family
DX: K08.89 Other specified disorders of teeth and supporting structures (principal)
CPT/HCPCS: 99281